=== PATIENT | male | born 1970 | race Caucasian/White ===

== ENCOUNTER 2016-07-24 16:30 | Outpatient (RCR) | payer OTHER ==
--- NOTE | 2016-07-11 11:02 | PT/OT/ST INITIAL EVALUATION ---
[facility], [facility]. PHYSICAL/OCCUPATIONAL THERAPY [address] [place] [id number] PLAN OF CARE/ASSESSMENT FOR OUTPATIENT REHABILITATION (Complete for Initial Claims Only) 1. PATIENT'S NAME Alex Lomax 2. ACC. No [id number] 3. PRIMARY DX Left shoulder arthroscopic debridement 4. SECONDARY DX Limited range of motion and strength at left shoulder 5. ONSET DATE 07/05/2016 6. REFERRAL DATE 07/05/2016 7. SOC. DATE/TIME 07/08/2016 1500 8. PRIOR LEVEL OF FUNCTION; PERTINENT HISTORY (Prior therapy results, reason for referral.) S: The patient was referred to physical therapy by Dr. Rapp in [place] with the diagnosis of arthroscopic debridement of left shoulder. The patient reports that he had been having pain at his left shoulder for approximately 6 months. The patient notes that he had been having pain when raising the shoulder and pain when putting on a jacket or when getting dressed. He is right handed. The patient feels he had initially injured his shoulder clear back in high school when playing football. He feels that he then aggravated over the last couple of years exercising, lifting weights and doing pushups. 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 Overall health rating: Rates overall health as good. Current pain rating now is 5/10. Past medical history includes right knee scope x2. Medication includes pain meds and antiinflammatories. The patient's goal for therapy is to get back to lifting weights and doing pushups. 9. INITIAL ASSESSMENT/SAFETY PRECAUTIONS/MEDICAL COMPLICATIONS (Level of function at start of care. Be specific, use objective measures, list problems.) O: APPEARANCE: The patient is a healthy looking 46-year-old male. He demonstrates mild forward head posture. Appearance of left shoulder demonstrates mild swelling at left anterior shoulder and lateral deltoid region. No bruising is noted at this time. Only one incision portal is seen at the posterior delt region. The patient is moving arm freely outside of sling. RANGE OF MOTION/FLEXIBILITY: Active motion right shoulder flexion 150 degrees, abduction 160 degrees. Left shoulder active flexion 138 degrees, abduction 114 degrees. Passive range of motion right shoulder flexion 148 degrees, abduction 175 degrees. External rotation 108 degrees and internal rotation 40 degrees. Left shoulder passive range of motion -flexion 148 degrees, abduction 165 degrees, external rotation 80 degrees and internal rotation 40 degrees. STRENGTH: Right shoulder strength was 5/5 manual muscle test with all motions, except abduction, which was 4+/5 manual muscle test. Left shoulder strength at this time was grossly 4/5 manual muscle test due to pain. TODAY'S TREATMENT: Included initial evaluation followed by gentle manual stretching and mobilization to the patient's left shoulder. The patient was instructed on home exercise program for gentle stretching and flexibility exercises. The treatment was ended with vasopneumatic cold compression to the patient's left shoulder. 10. INITIAL POC: (Specify procedures, modalities, short and superintendent [employer] goals) A: The patient is status post left shoulder arthroscopic debridement. PROGNOSIS: The patient is a good candidate for physical therapy to regain range of motion, flexibility, stabilization and strength. GOALS: 1. The patient to be compliant with home exercise program in 1 week. 2. The patient to demonstrate full passive motion at left shoulder in 2 weeks. 3. The patient to demonstrate 4+/5 manual muscle test strength at left shoulder without pain in 4 weeks. 4. The patient to be able to perform normal daily activities and use left shoulder without pain in 6 weeks. 5. The patient to return to normal exercise routine without pain at left shoulder in 8 weeks. PLAN: The patient will be seen 2 times a week over the next 4 weeks. Plan on progressing the patient with range of motion, flexibility, stabilization, and light strengthening activities as tolerated. 11. PHYSICIAN SIGNATURE ? ON FILE OR ENTER HERE: 12. DATE: I certify the need for these services furnished under this plan of care and if for partial hospitalization. 13. CERTIFICATION FROM THROUGH
[~2016-07-24 16:30] MED LIST: OXYC1TAB87 PO
== END 2016-08-01 09:06 | disposition home or self-care (01) ==
LOC: PT 16:30
PROVIDERS: ATTEND Orthopaedic Surgery
DX: M24.812 Other specific joint derangements of left shoulder, not elsewhere classified (principal); M25.612 Stiffness of left shoulder, not elsewhere classified